=== PATIENT | male | born 1965 | race Caucasian/White ===

== ENCOUNTER 2018-07-01 06:07 | Inpatient (IN) | payer OTHER ==
[2018-06-30 08:50] VITALS: BMI 24.3
[~2018-07-01 06:07] MED LIST: HEPARIN NA (PORCINE) 5,000 UNITS/ML 1ML VIAL SQ ONE
--- NOTE | 2018-07-01 06:46 | HP ---
History & Physical Update - History History: No Change - Physical Physical: No Change - Assessment Assessment: No Change - Plan Plan: No Change (Inital H&P is located in patient's chart. Complete and accurate. No new complaints or medications. Here today for elective robotic prostatectomy w/ Dr. Josesito Gonzalez.)
[2018-07-01] MEDS ORDERED: fentaNYL CITRATE 250 MCG/5 ML VIAL ONE ×2 (07:17→08:55)
[2018-07-01] MEDS ORDERED: ePHEDrine SULFATE 50 MG/1 ML AMPULE ONE (07:17)
[2018-07-01] MEDS ORDERED: ROCURONIUM BROMIDE 50 MG/5 ML VIAL ONE ×4 (07:17→11:16)
[2018-07-01] MEDS ORDERED: MIDAZOLAM HCL 2 MG/2 ML SINGLE DOSE VIAL ONE (07:18)
[2018-07-01] MEDS ORDERED: DEXAMETHASONE SOD PHOSPHATE 4 MG/1 ML VIAL ONE (07:18)
[2018-07-01] MEDS ORDERED: PROPOFOL 20 ML ONE ×3 (07:18)
[2018-07-01] MEDS ORDERED: SUCCINYLCHOLINE CHLORIDE 200 MG/10 ML VIAL ONE (07:18)
[2018-07-01] MEDS ORDERED: ceFAZolin SODIUM 1 GM VIAL ONE (07:18)
[2018-07-01] MEDS ORDERED: DESFLURANE GAS 240 ML BOTTLE IH ONE (07:21)
[2018-07-01] MEDS ORDERED: BUPIVACAINE HCL/PF 0.25% (2.5MG/ML) 10 ML VIAL ONE (07:55)
[2018-07-01] MEDS ORDERED: CEFAZOLIN 2 GM in DEXTROSE 5%-WATER - 50 ML IVPB ONE (07:56)
[2018-07-01] MEDS ORDERED: ONDANSETRON 4 MG/2 ML VIAL IVPUSH PRN (08:06)
[2018-07-01] MEDS ORDERED: LACTATED RINGERS SOLUTION 1,000 ML IV SCH (08:15)
[2018-07-01] MEDS ORDERED: ceFAZolin SODIUM 1 GM VIAL IVPB ONE (08:40)
[2018-07-01] MEDS ORDERED: BUPIVACAINE HCL/PF 0.25% (2.5MG/ML) 10 ML VIAL IJ ONE ×2 (09:18)
[2018-07-01] MEDS ORDERED: NEOSTIGMINE METHYLSULFATE 0.5 MG/ML - 10 ML MDV ONE (12:34)
[2018-07-01] MEDS ORDERED: PHENYLEPHRINE HCL 10 MG/1 ML SINGLE DOSE VIAL ONE (12:34)
[2018-07-01] MEDS ORDERED: MEPERIDINE HCL 25 MG/ML VIAL ONE (13:10)
--- NOTE | 2018-07-01 13:12 | OP ---
Operative Note - Note: Operative Date: 07/01/18 Pre-Operative Diagnosis: Prostate CA Operation: Robotic assisted laprascopic radical prostatectomy w/ bilateral pelvic lymph node dissection Post-Operative Diagnosis: Same as Pre-op Surgeon: Josesito Gonzalez Project Management Instructor: Tenzin Billings Anesthesiologist/WIRE DROPPER: Storm Rand Anesthesia: General Specimens Removed: Prostate and bilateral lymph nodes Estimated Blood Loss (mls): 150 Drains, Volume Out (mls): 300 (colunga) Fluid Volume Replaced (mls): 1,000 Operative Report Dictated: Yes
[2018-07-01] MEDS ORDERED: ONDANSETRON 4 MG/2 ML VIAL IVPB PRN (13:13)
[2018-07-01] MEDS ORDERED: diphenhydrAMINE HCL 25 MG CAPSULE (FP) PO PRN (13:13)
[2018-07-01] MEDS ORDERED: OXYBUTYNIN CHLORIDE 5 MG TABLET PO PRN (13:13)
[2018-07-01] MEDS ORDERED: SODIUM CHLORIDE 1,000 ML IV SCH (13:15)
--- NOTE | 2018-07-01 13:18 | SURG ---
Surgery Rigging Loft Mechanic Note Rigging Loft Mechanic: Tenzin Billings PA-C Date of Service: 07/01/18 Diagnosis: Prostate Cancer Procedure: Robotic assisted laprascopic radical prostatectomy w/ bilateral pelvic lymph node dissection I was present for the entirety of the operative procedure. For further detail, please refer to operative report. Visit type - Case Type Case Type: Scheduled - New patient This patient is new to me today: Yes Date on this admission: 07/01/18
[2018-07-01] MEDS: ACETAMINOPHEN 1000 MG/100 ML VIAL (NON FORMULARY) IVPB ONE (13:35)
[2018-07-01] MEDS: KETOROLAC TROMETHAMINE 10 MG TABLET PO SCH (19:24)
[2018-07-01] MEDS: ACETAMINOPHEN 500 MG TABLET (FP) PO SCH (20:20)
[2018-07-01] MEDS: DOCUSATE SODIUM 100 MG CAPSULE (FP) PO SCH (21:14)
[2018-07-02] MEDS: KETOROLAC TROMETHAMINE 10 MG TABLET PO SCH ×3 (00:09→12:08)
--- NOTE | 2018-07-02 00:25 | OP ---
DATE OF OPERATION: DATE OF DICTATION: 07/01/2018 PREOPERATIVE DIAGNOSIS: Prostate cancer. POSTOPERATIVE DIAGNOSIS: Prostate cancer. NAME OF PROCEDURE: Robotic assisted laparoscopic radical prostatectomy and bilateral pelvic lymph node dissection. DESCRIPTION OF PROCEDURE: The patient was brought to the operating room. A timeout was called today. All pressure points were padded. He was prepped and draped in the usual fashion for robotic prostatectomy. A Garcia catheter was placed in the bladder. Initial pneumoperitoneum was obtained using a Veress needle. Subsequently, an 8-mm port was placed, and the robotic camera was used, and the abdomen was explored. No bowel injuries were identified. Three additional 8-mm ports and one 12-mm bus assistant port were placed under vision. The robot was brought to the patient's bedside and docked. We identified a few intraabdominal adhesions which were taken down sharply. The bladder was dropped from the anterior attachments to the abdominal wall. The prostate was then de-fatted, and the fat was sent for pathological examination. The endopelvic fascia was opened on both sides. The superficial veins were cauterized, and a DVT stitch of 0 PDS was placed. The anterior bladder neck was then incised, and the dissection proceeded towards the posterior bladder neck up to the vas deferens and terminal vesicles. The rectoprostatic fascia was incised, and the dissection was carried distally towards the apex. At that point bilateral nerve sparing procedure was performed, and dissection was pursued laterally up to the apex. On the right, an intrafascial nerve sparing procedure was performed. On the left an intrafascial nerve sparing procedure was performed. A frozen section of periprostatic tissue was sent at this time and was found negative for carcinoma. The prostatic vascular pedicles were then controlled bilaterally using clips. The DVC was then divided, and the urethra was transected using cold scissors. Following complete urethral transection, the prostate was then mobilized and freed from its posterior attachments and placed in the right upper quadrant. The prostatic basin was then irrigated with saline. The bedside bus assistant placed a finger in the rectum, and no rectal injury was observed, with no visible blood noted on the surgical coder's glove. Bilateral pelvic lymph node dissections were performed in the usual fashion between the external iliac and the obturator nerves bilaterally. Prostate and lymph nodes were then placed together in an EndoCatch bag. At this point, hemostasis was assessed, and maintained in the prostatic fossa. The urethrovesical anastomosis was then performed using 2-0 Monocryl suture on a UR6 needle in a running anastomotic technique. The anastomosis was tested with 60 mL of saline and was watertight. A Lizandro-Blake drain was not placed. The 12-mm bus assistant port was closed using the Vikram-Carlos Eduardo device with 0 Vicryl. The specimen was extracted after enlarging the umbilical incision. The fascia was then closed using running 0 Vicryl. The skin was then closed using 4-0 Monocryl and covered with Dermabond. The patient was extubated in the OR and taken to the recovery room in good condition. Estimated blood loss was 150 mL. There were no complications with the procedure. There were no accidental incisions or lacerations during the procedure. MD GABRIELLA CASTELLANO/[id number]
[2018-07-02] MEDS: ACETAMINOPHEN 500 MG TABLET (FP) PO SCH ×3 (01:10→13:22)
[2018-07-02 06:31] LABS: HEMATOCRIT 37.3 % (35.4-49); HEMOGLOBIN 12.3 GM/dL (11.7-16.9); MCH 29.6 pg (25.7-33.7); MEAN CELL VOLUME 89.8 fl (80-96); MEAN PLT VOLUME 8.9 fl (7.5-11.1); PLATELET COUNT 179 K/MM3 (134-434); RBC 4.16 M/mm3 (4.00-5.60); RDW 13.6 % (11.9-15.9); WHITE BLOOD COUNT 12.2 K/mm3 (4.0-10.0)
[2018-07-02 07:22] LABS: CALCIUM 8.7 mg/dL (8.5-10.1); CREATININE 0.8 mg/dL (0.55-1.3); POTASSIUM 4.1 mmol/L (3.5-5.1)
[2018-07-02] MEDS: ACETAMINOPHEN 1000 MG/100 ML VIAL (NON FORMULARY) IVPB ONE (08:11)
--- NOTE | 2018-07-02 09:29 | DS ---
Physical Exam: SUBJECTIVE: Patient seen and examined. POD #1 s/p Robotic assisted laprascopic radical prostatectomy w/ bilateral pelvic lymph node dissection. Alert. Doing very well. No acute events overnight per RN notes. He has been OOB and ambulating unassisted. TOlerating PO diet. Colunga remains in place. States his pain is only 2/10. Denies n/v/f/c, CP, Palpitations, SOB or PETTY. OBJECTIVE: Last Vital Signs Temp Pulse Resp BP Pulse Ox 98.7 F 67 18 117/63 98 07/02/18 08:49 07/02/18 08:49 07/02/18 08:49 07/02/18 08:49 07/01/18 22:00 PE GEN: The patient is awake, alert, and fully oriented, in no acute distress. HEAD: Normal with no signs of trauma. EYES: PERRL, extraocular movements intact, sclera anicteric, conjunctiva clear. ENT: Ears normal, nares patent, oropharynx clear without exudates, moist mucous membranes. NECK: Trachea midline, full range of motion, supple. LUNGS: Breath sounds equal, clear to auscultation bilaterally, no wheezes, no crackles, no accessory muscle use. HEART: Regular rate and rhythm, S1, S2 without murmur, rub or gallop. ABD: Soft, all surgical ports are c/d/i. No hematoma. : colunga to gravity > 30 mL/hour (clear) EXTREMITIES: 2+ pulses, warm, well-perfused, no edema. PSYCH: Normal mood, normal affect. LABS CBC,CMP WBC 12.2 K/mm3 (4.0-10.0) H 07/02/18 06:00 RBC 4.16 M/mm3 (4.00-5.60) 07/02/18 06:00 Hgb 12.3 GM/dL (11.7-16.9) 07/02/18 06:00 Hct 37.3 % (35.4-49) 07/02/18 06:00 MCV 89.8 fl (80-96) 07/02/18 06:00 MCH 29.6 pg (25.7-33.7) 07/02/18 06:00 MCHC 33.0 g/dl (32.0-35.9) 07/02/18 06:00 RDW 13.6 % (11.9-15.9) 07/02/18 06:00 Plt Count 179 K/MM3 (134-434) 07/02/18 06:00 MPV 8.9 fl (7.5-11.1) 07/02/18 06:00 Sodium 138 mmol/L (136-145) 07/02/18 06:00 Potassium 4.1 mmol/L (3.5-5.1) 07/02/18 06:00 Chloride 107 mmol/L (98-107) 07/02/18 06:00 Carbon Dioxide 25 mmol/L (21-32) 07/02/18 06:00 Anion Gap 7 MMOL/L (8-16) L 07/02/18 06:00 BUN 14 mg/dL (7-18) 07/02/18 06:00 Creatinine 0.8 mg/dL (0.55-1.3) 07/02/18 06:00 Est GFR (CKD-EPI)AfAm 119.88 07/02/18 06:00 Est GFR (CKD-EPI)NonAf 103.43 07/02/18 06:00 Random Glucose 113 mg/dL (74-106) H 07/02/18 06:00 Calcium 8.7 mg/dL (8.5-10.1) 07/02/18 06:00 HOSPITAL COURSE: Date of Admission:07/01/18 Date of Discharge: 07/02/18 The patient was admitted to the Med-Surg Unit s/p Robotic assisted laprascopic radical prostatectomy w/ bilateral pelvic lymph node dissection. Rebecca-operative IV ABX were administered. DVT prophylaxis was achieved with SCDs and early ambulation. POD #1 [address] amb[address] without assistance. Pain managed well with non -narcotic approach. Pain 2/10. Colunga placed to leg bag and instructed how to electronic data interchange specialist to night bag. The discharge instructions and an oral pain management plan were reviewed with the patient. All questions answered. Above plan discussed with Dr. Gonzalez and agreed. Minutes to complete discharge: 35 Visit type - Case Type Case Type: Scheduled
[2018-07-02] MEDS: DOCUSATE SODIUM 100 MG CAPSULE (FP) PO SCH (10:08)
[2018-07-02 15:03] VITALS: BP 118/71; PULSE 75; TEMP 98.6
--- NOTE | 2018-07-08 12:35 | PATH ---
Surgical Pathology Report Patient Name: ANA PAULA MEYERS [facility]. Rec. #: [id number] /Age/Gender: 1965 (Age: 53) / M Account: [id number] Location: [address] [place] [address] Taken: 07/01/2018 Received: 07/01/2018 Reported: 07/08/2018 Physicians: Josesito Gonzalez MD Specimen(s) Received A: PROSTATE APEX B: PERIPROSTATIC FAT C: PELVIC LYMPH NODE PART A D: PELVIC LYMPH NODE PART B E: PROSTATE AND SEMINAL VESICLE Clinical History Prostate cancer Intraoperative Consult Diagnosis Prostate apex for frozen section: Fibromuscular tissue, Negative for carcinoma. Dr. Munoz 07/01/18 Final Diagnosis A. PROSTATE APEX, BIOPSY (FS): BENIGN FIBROMUSCULAR TISSUE. NEGATIVE FOR CARCINOMA. B. PERIPROSTATIC FAT, EXCISION: BENIGN FIBROADIPOSE TISSUE. C. PELVIC LYMPH NODE, PART A, EXCISION: ONE LYMPH NODE NEGATIVE FOR CARCINOMA (0/1). D. PELVIC LYMPH NODE, PART B, EXCISION: TWO LYMPH NODES, NEGATIVE FOR CARCINOMA (0/2). E. PROSTATE AND SEMINAL VESICLE, ROBOTIC ASSISTED LAPAROSCOPIC RADICAL PROSTATECTOMY: PROSTATIC ADENOCARCINOMA, CHRIS SCORE (3 +4 = 7), GRADE 2. TUMOR VOLUME: APPROXIMATELY 15% OF GLAND VOLUME. TUMOR FOCALITY: PRESENT BILATERALLY; DOMINANT NODULE AT LEFT POSTERIOR, MEASURES 1.5 X 1 X 0.7 CM. HIGH GRADE PROSTATIC INTRAEPITHELIAL NEOPLASIA (HGPIN) PRESENT. RIGHT AND LEFT SEMINAL VESICLES ARE UNINVOLVED. NO LYMPHOVASCULAR INVASION IDENTIFIED. PERINEURAL INVASION IDENTIFIED. EXTRAPROSTATIC EXTENSION: PRESENT, NON-FOCAL, LEFT POSTERIOR LATERAL AND LEFT POSTERIOR BASE/BLADDER NECK. SURGICAL MARGIN IS POSITIVE, NON-LIMITED, MEASURES 3 MM, AT LEFT POSTERIOR LATERAL AND LEFT POSTERIOR BASE/BLADDER NECK; OTHER MARGINS ARE NEGATIVE. ONE LYMPH NODE NEGATIVE FOR CARCINOMA (0/1). PATHOLOGIC STAGE: pT3a pN0. SEE SUMMARY BELOW. Comments Prostate Carcinoma: Surgical Pathology Cancer Case Summary (Based on AJCC (TNM) 8th Edition) PROSTATE GLAND: Radical Prostatectomy Procedure _X_ Radical prostatectomy Prostate Size Weight: (grams): 40 g Size (centimeters): 4 x 3.5 x 4 cm Histologic Type _X_ Acinar adenocarcinoma Histologic Grade Grade Group and Jerome Score _X_ Grade group 2 (Chris Score 3+4=7) Percentage of Pattern 4 in Jerome Score 7 (3+4, 4+3) Cancer (report if applicable): 30% Intraductal Carcinoma (IDC) _X_Not identified Tumor Quantitation Estimated percentage of prostate involved by tumor: 15 % Tumor size (dominant nodule, if present): Greatest dimension (millimeters): 15 mm Additional dimensions (millimeters): 10 x 7 mm Location of dominant nodule: Left posterior base Extraprostatic Extension _X_ Present, nonfocal Location of Extraprostatic Extension _X_ Left bladder neck _X_ Left posterolateral (neurovascular bundle) _X_ Left posterior Urinary Bladder Neck Invasion _X_ Identified Seminal Vesicle Invasion _X_ Not identified Lymphovascular Invasion _X_ Not identified Perineural Invasion _X_ Present Margins _X_ Non-limited (greater than or equal to 3 mm) Linear length of positive margin(s) (millimeters): 3 mm _X_ Multifocal Location of Positive Margin(s) _X_ Left Posterior/bladder neck _X_ Left postero-lateral (neurovascular bundle) Margin Positivity in Area of Extraprostatic Extension (EPE) _X_ Present Specify location(s): Left postero-lateral (neurovascular bundle), Left Posterior/bladder neck Jerome Pattern at Positive Margin(s) _X__ Pattern 3 Treatment Effect _X__ No known presurgical therapy Regional Lymph Nodes Lymph Node Examination Number of Lymph Nodes Involved: 0 Number of Lymph Nodes Examined: 4 Pathologic Stage Classification (pTNM, AJCC 8th Edition) TNM Descriptors Primary Tumor (pT) _X__ pT3a: Extraprostatic extension (unilateral or bilateral) or microscopic invasion of bladder neck Regional Lymph Nodes Category (pN) _X__ pN0: No positive regional nodes Additional Pathologic Findings _X__ High-grade prostatic intraepithelial neoplasia (PIN) _X__ Nodular prostatic hyperplasia Electronically Signed Rocío Palacios M.D. Gross Description A. Received fresh for immediate intraoperative consultation labeled "prostate apex" is a small fragment of red-soto soft tissue measuring 0.5 x 0.3 x 0.2 cm. The entire specimen is submitted for frozen section analysis in one cassette, FSA1. B. Received in formalin labeled "periprostatic fat," is a 4 x 3.0 x 0.7 cm aggregate of yellow, lobulated adipose tissue. The specimen is entirely submitted in 2 cassettes. C. Received in formalin labeled "pelvic lymph node A," is a 5 x 4 x 2 cm aggregate of soto-yellow, lobulated adipose tissue. Sectioning reveals one lymph node which measures 4.5 x 1.5 x 1 cm. The specimen is entirely submitted in 2 cassettes. D. Received in formalin labeled "pelvic lymph node B," is a 5 x 2 x 1 cm aggregate of soto-yellow, lobulated adipose tissue. Sectioning reveals 2 lymph nodes which measures 1 x 0.5 x 0.3 and 0.5 x 0.5 x 0.2 cm. The specimen is entirely submitted in 4 cassettes as follows: D1-3- larger lymph node, D4- smaller lymph node. E. Received in formalin labeled "prostate" is a 40 g radical prostatectomy specimen with attached seminal vesicles and vas deferentia. The prostate measures 4 cm from left to right, 3.5 cm from superior to inferior and 4 cm from anterior to posterior. The right seminal vesicle measures 4 x 2.5 x 1 cm and the left seminal vesicle measures 4 x 2 x 1 cm. Right and left vas deferens measures 2 x 0.7 cm, each. The outer capsule is soto escobedo and predominantly smooth. The right side of the prostate is inked in red and the left side is inked black. The specimen shows a 1.5 x 1 x 0.7 cm, ill-defined soto-yellow, nodular lesion at the left posterior sections, near the base. Vague nodularity at the bilateral posterior base sections are noted. Detached fibroadipose tissue measuring 3 x 2.5 x 0.5 cm is identified separately within the container. Fisher Crab sections are submitted in 47 cassettes as follows: E1-right vas deferens margin, E2-left vas deferens margin , E3-coned right apex; E4-coned left apex; E5-6- right base, E7-8 Left base, E9-10- junction of right seminal vesicle with prostatic parenchyma, E11-12- junction of left seminal vesicle with prostatic parenchyma, E13-20- right anterior sequentially submitted from apex to base; E21-29- right posterior sequentially submitted from apex to base, E30-37- left anterior sequentially submitted from apex to base, E38-46- left posterior sequentially submitted from apex to base, E47- fat. MLADILENE/07/01/2018 san/07/01/2018
== END 2018-07-02 15:09 | disposition home or self-care (01) | DRG 480 ==
LOC: JSAMEDAYSX 06:07 → J6S 15:15
PROVIDERS: ADMIT Urology; ATTEND Urology
PROC: 8E0W4CZ Robotic Assisted Procedure of Trunk Region, Percutaneous Endoscopic Approach (ICD-10-PCS; 2018-07-01)
PROC: 07TC4ZZ Resection of Pelvis Lymphatic, Percutaneous Endoscopic Approach (ICD-10-PCS; 2018-07-01)
PROC: 0VT04ZZ Resection of Prostate, Percutaneous Endoscopic Approach (ICD-10-PCS; principal; 2018-07-01 08:00)
DX: C61 Malignant neoplasm of prostate (principal)
CPT/HCPCS: 36415; 80048; 85027; 86850; 86900; 86901; 88305-TC; 88307-TC; 88309-TC; 88331-TC; 94010; 94760; J0131; J1644; J7030